=== PATIENT | male | born 1950 | race Caucasian/White ===

== ENCOUNTER 2023-11-04 13:32 | Emergency (ER) | payer MEDICARE ==
[~2023-11-04] VITALS: Ht 170.2 cm; Wt 78.0 kg
[2023-11-04 13:45] VITALS: TEMP 97.8
[2023-11-04] MEDS: HYDROmorphone HCL 2 MG/ML SYRINGE IVP ONE ×2 (14:24→15:56)
[2023-11-04] MEDS: SODIUM CHLORIDE 0.9% 1,000 ML IV ONE (14:24)
[2023-11-04 14:25] LABS: BASOPHILS % (AUTO) 0.4 % (0.0-2.0); EOSINOPHILS % (AUTO) 0.6 % (1.0-6.0); HEMATOCRIT 44.7 % (41-53); LYMPHOCYTES # (AUTO) 1.7 K/uL (1.0-4.8); LYMPHOCYTES % (AUTO) 11.6 % (22.0-44.0); MEAN CORPUSCULAR HEMOGLOBIN 30.1 pg (26.0-34.0); MEAN CORPUSCULAR HGB CONC 33.5 G/dL (31.0-37.0); MEAN CORPUSCULAR VOLUME 90 fL (80-100); MONOCYTES # (AUTO) 0.4 K/uL (0.1-1.0); MONOCYTES % (AUTO) 3.1 % (2.0-9.0); NEUTROPHILS # (AUTO) 12.3 K/uL (1.8-7.7); NEUTROPHILS % (AUTO) 84.3 % (40.0-70.0); PLATELET COUNT (AUTO) 333 K/uL (150-450); RED BLOOD CELL COUNT(AUTO) 4.98 MIL/uL (4.50-5.90); RED CELL DISTRIBUTION WIDTH 13.7 % (11.5-14.5); WHITE BLOOD COUNT (AUTO) 14.5 K/uL (4.5-11.0)
[2023-11-04 14:40] LABS: CALCIUM, TOTAL 8.1 mg/dL (8.8-10.5); CREATININE 1.81 mg/dL (0.60-1.30); POTASSIUM 4.4 mmol/L (3.5-5.1)
[2023-11-04 14:52] LABS: ALBUMIN 2.9 g/dL (3.4-5.0); BILIRUBIN,TOTAL 0.3 mg/dL (0.1-1.0); TOTAL PROTEIN, SERUM 5.8 g/dL (6.4-8.2)
[2023-11-04] MEDS ORDERED: 0.9% SODIUM CHLORIDE 10 ML SYRINGE IVP PRN (15:15)
[2023-11-04 15:57] LABS: INR 1.1 (0.9-1.1); PROTHROMBIN TIME 11.3 SEC (9.4-11.6)
[2023-11-04 16:02] LABS: LACTIC ACID 1.8 mmol/L (0.4-2.0)
[2023-11-04 16:10] LABS: B-TYPE NATRIURETIC PEPTIDE < 5 pg/mL (0-100)
[2023-11-04 16:19] LABS: TROPONIN I-HIGH SENSITIVITY Less Than 4 ng/L (<76)
[2023-11-04] MEDS: CefTRIAXone 1 GM/DEXTROSE 50 ML IV ONE (17:14)
[2023-11-04] MEDS: PIPERACILLIN/TAZO 3.375 GM/D5W 50 ML IV ONE (17:51)
[2023-11-04 18:37] VITALS: BP 134/64; PULSE 87; RESP 17
[2023-11-04 18:37] LABS: COVID AG,FIA SOURCE NASAL SWAB
[2023-11-04 19:51] LABS: SARS-COV2 (COVID) ANTIGEN,FIA Negative (Negative)
== END 2023-11-04 19:36 | disposition short-term general hospital (02) ==
LOC: EMS 13:34
DX: N41.9 Inflammatory disease of prostate, unspecified (principal); E78.00 Pure hypercholesterolemia, unspecified; I10 Essential (primary) hypertension; Z87.442 Personal history of urinary calculi; Z20.822 Contact with and (suspected) exposure to COVID-19
CPT/HCPCS: 99285; 74176; 96365; 71045; 96361; 96366; 96375; 87426; 80053; 83605; 83690; 83880; 84484; 85025; 85610; 87040; 36415; 93005; 96376; 96368; 84145; J0696; J1170; J2543; J7030